=== PATIENT | female | born 1990 | race Caucasian/White ===

== ENCOUNTER 2017-12-30 20:58 | Emergency (ER) | payer OTHER, MEDICAID, SELFPAY ==
[2017-12-30 21:15] VITALS: BP 134/66; PULSE 89; RESP 18; TEMP 36.4; O2SAT 100
--- NOTE | 2017-12-31 00:04 | ED.EXTPRO ---
HPI - Extremity Problem General Chief complaint: Extremity Problem,Nontraumatic Stated complaint: SWELLING OF LEGS AND FEET TINGLING OF ARMS Time Seen by Provider: 12/31/17 00:04 Source: patient Mode of arrival: ambulatory History of Present Illness HPI Narrative: Patient is a 27-year-old female who presents bilateral leg swelling. She says she worked 8:03 p.m. last night and septal 6:00 p.m. eye today and woke up and felt like her legs are swollen. They are little erythematous they have scratches on them she says she is outside gardening. No fevers or chills. They have been like this for a couple days however she feels the swelling has gotten were she also said that her arms and hands have been numb and tingling as well. There are no scratches or erythematous on her arms. No track villanueva. She denies any shortness of breath no injury Related Data Home Medications Medication Instructions Recorded Confirmed etonogestrel [Nexplanon] #0 09/10/17 Allergies Allergy/AdvReac Type Severity Reaction Status Date / Time Penicillins [PENICILLINS] Allergy Intermediate Verified 12/30/17 21:18 Review of Systems Review of Systems GENERAL: Denies chills, fatigue, malaise, fever, sweats, travel HEENT: Denies sinus pain, ear pain, sore throat, difficulty swallowing, neck pain RESPIRATORY: Denies dyspnea, cough, wheezing, hemoptysis, sputum. CARDIOVASCULAR: Denies chest pain, palpitations, orthopnea, edema GASTROINTESTINAL: Denies nausea, vomiting, abdominal pain, diarrhea, constipation, melena. : Denies dysuria, frequency, incontinence, hematuria, urinary retention, flank pain. MUSCULOSKELETAL: Lower extremity swelling SKIN: No rash, no erythema, no pruritus NEUROLOGIC: Denies weakness, dizziness, headache, numbness, change in speech, confusion PSYCHIATRIC: No concerning psychosocial issues. 12 point review of systems is negative except for those stated above and HPI PFSH Medical History Healthy adult (Acute) Social History Smoking Status: Current every day smoker alcohol intake: never substance use type: does not use Exam Initial Vital Signs Initial Vital Signs: Vital Signs Temperature 97.6 F 12/30/17 21:15 Pulse Rate 89 12/30/17 21:15 Respiratory Rate 18 12/30/17 21:15 Blood Pressure 134/66 H 12/30/17 21:15 Pulse Oximetry 100 12/30/17 21:15 GENERAL: Well-appearing, well-nourished and in no acute distress. CARDIOVASCULAR: peripheral pulses in tact, cap refill <2 sec RESPIRATORY: No respiratory distress, speaks in full sentences without difficulty EXTREMITIES: Trace edema bilaterally nonpitting. No calf pain. Upper extremities are within normal limits. Normal range of motion, no clubbing.. Neurovascularly intact NEUROLOGICAL: Cranial nerves II through XII grossly intact. Normal gait and speech. SKIN: Mild blanchable erythema on bilateral legs. Some scratches which are scabbed over and healing, do not appear infectious. Course Orders Ordered: Discontinued Medications Prednisone (Deltasone 20 Mg Prepack) 1 bottle MISC SEEINSTR ONE Stop: 12/31/17 00:09 Prednisone (Deltasone) 40 mg PO NOW ONE Stop: 12/31/17 00:32 Last Admin: 12/31/17 00:37 Dose: 40 mg Vital Signs - 8 hr 12/30/17 21:15 12/31/17 00:46 Temperature 97.6 F Pulse Rate 89 77 Respiratory Rate 18 16 Blood Pressure 134/66 H 128/77 H Pulse Oximetry 100 99 MDM - Extremity (Nontraumatic) Differential Diagnosis Likely cellulitis, superficial thrombophlebitis, lower extremity edema, deep vein thrombosis of lower extremity and other (allergic reaction, venous stasis) Discharge Plan Departure Patient Disposition: Home, Self-Care Clinical Impression: Peripheral edema Discharge Date/Time: 12/31/17 00:49 Interventions: ED Discharge Assessment Last Done: 12/31/17 00:46 Instructions: DI for Peripheral Edema -- Bilateral Activity Restrictions/Additional Instructions: *You have been diagnosed with peripheral edema *What to do: This is likely a mild reaction. Does not appear infected at this time *Continue to take medications as directed -prednisone 40mg once a day, may start tomorrow *Follow up with your primary care provider in 2-3 days *Return to ER if you should have fevers, body aches, increasing redness, shortness of breath or any new, worsening or concerning symptoms Prescriptions: No Action etonogestrel [Nexplanon] 68 MG implant Qty: 0 RF: 0
[2017-12-31] MEDS: predniSONE 20 MG TABLET 40 MG PO (00:37)
[2017-12-31 00:46] VITALS: BP 128/77; PULSE 77; RESP 16; O2SAT 99
== END 2017-12-31 00:49 | disposition home or self-care (01) ==
PROVIDERS: Emergency Provider Emergency Medicine; Family Provider Nurse Practitioner; PCP Nurse Practitioner
DX: R60.9 Edema, unspecified (principal)
CPT/HCPCS: 99282; 99283

== ENCOUNTER 2019-03-09 15:54 | Emergency (ER) | payer OTHER, MEDICAID, SELFPAY ==
[2019-03-09 16:14] VITALS: BP 105/67; PULSE 88; RESP 16; TEMP 36.6; O2SAT 98
[2019-03-09 16:39] VITALS: BP 127/73; PULSE 74; RESP 15; O2SAT 99
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
[2019-03-09 17:00] VITALS: BP 108/60; PULSE 64; RESP 16; O2SAT 99
[2019-03-09 17:36] VITALS: BP 103/63; PULSE 59; RESP 16; O2SAT 100
--- NOTE | 2019-03-09 17:48 | PC.NURSE ---
c spine cleared by Dr. Cárdenas. c-collar removed.
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
[2019-03-09 18:00] VITALS: BP 101/68; PULSE 67; RESP 16; O2SAT 100
[2019-03-09 18:30] VITALS: BP 105/69; PULSE 55; RESP 18; O2SAT 100
[2019-03-09] MEDS: ACETAMINOPHEN 325 MG TABLET 650 MG PO (18:38)
== END 2019-03-09 18:50 | disposition home or self-care (01) ==
PROVIDERS: Emergency Provider Emergency Medicine
DX: S20.211A Contusion of right front wall of thorax, initial encounter (principal); V19.9XXA Pedal cyclist (driver) (passenger) injured in unspecified traffic accident, initial encounter
CPT/HCPCS: 70450; 71101; 72125; 99283; 99284